=== PATIENT | female | born 1960 | race Caucasian/White ===

== ENCOUNTER 2019-01-26 00:44 | Inpatient (IN) | payer OTHER ==
[~2019-01-26] VITALS: Ht 165.1 cm; Wt 75.8 kg
[~2019-01-26 00:44] MED LIST: HYDROCODONE-AP1 EA10 PO
[2019-01-26 02:35] VITALS: BP 142/77
[2019-01-26] MEDS ORDERED: ABILIFY10 MG PO (02:44)
[2019-01-26] MEDS ORDERED: NITROFURANTOIN100 MG PO (02:44)
[2019-01-26] MEDS ORDERED: BENZTROPINE ME0.5 MG PO (02:45)
[2019-01-26] MEDS ORDERED: TRAZODONE HCL50 MG PO (02:45)
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
[2019-01-26 07:30] VITALS: BP 95/59
--- NOTE | 2019-01-26 09:22 | NUR ---
NEW ORDER FOR ACETAMINOPHEN 650 MG PO PRN FOR ELY. ADMINISTERED FIRST DOSE AT 09:15, C/O ELY RATED "9." STATED THAT SHE TAKES ADVIL OR ASPIRIN AT HOME, ALSO HAS FREQUENT HEADACHES. DENIES MIGRAINES. CONTINUE TO MONITOR.
--- NOTE | 2019-01-26 09:58 | NUR ---
ASSUMED PATIENT CARE AT 0700. PATIENT UP PER SELF FOR BREAKFAST. C/O HEADACHE, NEW ORDER FOR TYLENOL 650 MG. PATIIENT REFUSED A.M. GROUP R/T ELY. TYLENOL GIVEN FOR ELY--SEE EMAR FOR TIME. FLAT AFFECT, DENIES S/I, NO HALLUCINATIONS OIR PARANOIA VERBALIZED. CONTINUE TO MNONITOR.
[2019-01-26 14:15] VITALS: BP 95/59
[2019-01-26 20:15] VITALS: BP 95/59
[2019-01-27 00:19] VITALS: BP 95/59
--- NOTE | 2019-01-27 04:06 | NUR ---
PT IN BED DOZING AT [facility] OF SHIFT. ENCOURAGED TO COME OUT FOR EVENING SNACK. HAD JELLO, AND RETURNED TO ROOM. ALLOWED STAFF TO PERFORM ASSESSMENT AND VS. TOOK HS MEDS PRESCRIBED. DEPRESSED MOOD, BUT CORDIAL AND COOPERATIVE. SLEPT WELL THROUGH THE NIGHT.
[2019-01-27 07:00] VITALS: BP 118/67
--- NOTE | 2019-01-27 10:40 | NUR ---
ASSUMED PT CARE @ 0700. PT WAS RESTING IN BED AT THAT TIME. ATE BREAKFAST IN DAYROOM. C/O HEADACHE AND RECEIVED PRN TYLENOL - LYING DOWN IN ROOM AT PRESENT RESTING W/O FURTHER COMPLAINTS VOICED. DID NOT ATTEND AM GROUP D/T HEADACHE. DENIED ANY SI/HI AND NO HALLUCINATIONS VOICED. PT ORIENTED TO PERSON, PLACE, TIME. AFFECT FLAT. MINIMAL SPONTANEOUS INTERACTION. CONTINUE TO MONITOR.
--- NOTE | 2019-01-27 17:55 | NUR ---
PT SPENT MAJORITY OF SHIFT WITHDRAWN FROM PEERS AND IN HER ROOM. ATE MEALS IN DAYROOM. MOTHER VISITED IN AFTERNOON. NO ACUTE DISTRESS NOTED AND NO FURTHER COMPLAINTS VOICED. NO AGITATION NOTED. CONTINUE TO MONITOR.
[2019-01-27 20:00] VITALS: BP 131/69
[2019-01-28 00:30] VITALS: BP 131/69
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
--- NOTE | 2019-01-28 04:56 | NUR ---
SLEEPING WELL, TURNS IN SLEEP BY SELF. WILL CONTINUE TO MONITOR Q 12 MIN.
--- NOTE | 2019-01-28 05:56 | NUR ---
SLEPT TOTAL OF 8.6 HOURS.
[2019-01-28 07:54] VITALS: BP 111/65
[2019-01-28 11:52] VITALS: BP 111/65
--- NOTE | 2019-01-28 12:06 | NUR ---
ASSUMED CARE AT 0700 THIS MORNING. PT. IN HER ROOM, THEN CAME OUT FOR BREAKFAST. SHE STATED SHE WAS GOING TO MORNING GROUP. SHE WASKED OUT TO THE GROUP AND RETURNED IMMEDIATELY TO HER ROOM. LABS WERE ORDERED, BUT PT. REFUSED THEM. STAFF ASKED HER FOR A STOOL SAMPLE FOR AN OCCULT STOOL, BUT SHE STATED "I DON'T DO THAT STUFF". SHE WAS NOTED TO BE PACING AND TALKING TO HERSELF. WHEN ASKED IF I COULD HELP HER SHE REPLIED, "I'M FINE".
[2019-01-28 20:10] VITALS: BP 142/81
[2019-01-28 20:35] LABS: HEMATOCRIT 21.9 % (37.0-47.0); HEMOGLOBIN 6.9 gm/dL (12.0-15.0); MCH 20.6 pg (26.0-34.0); MCHC 31.6 g/dL (28.0-37.0); MCV 65.3 fL (80.0-100.0); PLATELET COUNT 484 thou/uL (150-400); RBC 3.36 mil/uL (4.20-5.00); RDW 17.5 % (10.5-14.5)
[2019-01-28 21:20] LABS: ABSOLUTE NEUTROPHILS 8.7 thou/uL (1.4-8.2); ANISOCYTOSIS 2+; HYPOCHROMASIA 1+
[2019-01-28 21:21] LABS: POLYCHROMASIA OCCASIONAL
[2019-01-28 23:15] VITALS: BP 142/81
--- NOTE | 2019-01-29 01:19 | NUR ---
ASSUMED CARE @ 1900, IN ROOM AND OCASSIONALY COMES OUT OF ROOM SUCH AT SNACK TIME. SPEACH AND MOVEMENTS ARE HYPER PACED. WHEN ASKED TO ALLOW LAB TO DRAW A BLOOD SAMPLE, SHE WANTED TO REFUSE, BUT ALLOWED IT WHEN EXPLAINED THAT IT WAS IMPORTANT FOR THE DOCTOR TO BE ABLE TO HELP IMPROVE HER HEALTH. PT FOUND IT DIFFICULT TO SIT OF EVEN STAY IN ONE LOCATION LONG ENOUGH FOR ASSESSMENT. A&O X3. HAS POOR INSIGHT INTO PSYCHOLOGICAL AND MENTAL HEALTH ISSUES. TOOK HS MEDS WITHOUT DIFFUCULTY, WHOLE WITH WATER.
--- NOTE | 2019-01-29 01:25 | NUR ---
PRN TRAZADONE 50 MG GIVEN AT HS FOR SLEEP AND TYLENOL 650 GIVEN FOR HEADACHE PAIN OF 6/10. PT SLEPT AND THEN WAS AWAKE @ 01:30. AMBULATING IN HALLS AND DAY ROOM. WILL CONTINUE TO MONITOR.
--- NOTE | 2019-01-29 06:05 | NUR ---
SLEPT 4 HOURS OVERNIGHT.
[2019-01-29 06:06] LABS: HEMOGLOBIN 6.9 gm/dL (12.0-15.0); RDW 17.5 % (10.5-14.5)
[2019-01-29 06:07] LABS: HEMATOCRIT 21.9 % (37.0-47.0); MCH 20.7 pg (26.0-34.0); MCHC 31.7 g/dL (28.0-37.0); MCV 65.2 fL (80.0-100.0); RBC 3.35 mil/uL (4.20-5.00); WBC 7.2 thou/uL (4.0-11.0)
[2019-01-29 06:09] LABS: CREATININE 0.7 mg/dL (0.6-1.0); POTASSIUM 4.1 mmol/L (3.5-5.1)
[2019-01-29 09:03] VITALS: BP 142/81
[2019-01-29 09:13] VITALS: BP 142/81
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
[2019-01-29 11:49] LABS: % SATURATION 2 % (20-39); IRON 8 ug/dL (50-170); TIBC 421 ug/dL (250-450)
[2019-01-29 12:50] LABS: FOLIC ACID 29.3 ng/mL (8.6-58.9)
[2019-01-29 22:53] VITALS: BP 141/96
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
--- NOTE | 2019-01-30 06:13 | NUR ---
PATIENT SLEPT 9.0 HOURS LAST NIGHT.
[2019-01-30 06:15] LABS: HEMATOCRIT 23.4 % (37.0-47.0); HEMOGLOBIN 7.2 gm/dL (12.0-15.0); MCH 20.3 pg (26.0-34.0); MCHC 30.8 g/dL (28.0-37.0); MCV 65.9 fL (80.0-100.0); RBC 3.56 mil/uL (4.20-5.00); RDW 17.4 % (10.5-14.5); WBC 7.6 thou/uL (4.0-11.0)
[2019-01-30 06:24] LABS: CALCIUM 8.7 mg/dL (8.5-10.1); CREATININE 0.6 mg/dL (0.6-1.0)
[2019-01-30 08:00] VITALS: BP 107/72
--- NOTE | 2019-01-30 12:08 | NUR ---
JAMILAH sent a referral to [facility] for pt to be enrolled into Medicaid. JAMILAH will foloow-up with Fritz.
--- NOTE | 2019-01-30 14:45 | NUR ---
ASSUMED PT CARE . REPORT RECEIVED FROM NURSE. PT IS AOX3 FORGETFUL. ON RA. VSS. PT ATE FULL MEALS. PT IS NOT VERY INTERACTIVE WITH STAFF. PT STAYS IN HER ROOM MOST OF THE TIME AFTER MEALS. IRON IV GIVEN ORDERED. IV LINE REMOVED FROM PT AFTER IRON INFUSION WAS OVER. IV SITE COVERED WITH ABD AND TAPE. IM VITAMIN B12 ADMINISTERED ORDERED. PT TOLORATED WELL. WILL CONTINUE TO MONITOR PT.
--- NOTE | 2019-01-30 16:02 | NUR ---
SW completed the SLUMS, and pt scored a 18/30.
[2019-01-30 19:30] VITALS: BP 104/63
[2019-01-30 23:28] VITALS: BP 104/63
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
--- NOTE | 2019-01-31 14:18 | NUR ---
PATIENT HAS BEEN UP AND OUT ON THE UNIT MOST OF THE SHIFT, TOOK ALL MEDICATION WHOLE WITHOUT DIFFICULTY. PATIENT IS EATING MEALS, AND DRINKING FLUID WELL. PATIENT DENIES SUICIDAL, AND HOMOCIDAL IDEATION. PATIENT'S THOUGHT APPEAR TO BE DISORGANIZED, SHE IS JUMPING FROM ONE SUBJECT TO THE OTHER, MAKING NON-SENSICAL STATEMENT. SHE STATES HER GOAL TODAY IS TO GET THROUGH TODAY, THEN CONTINUED SAYING "I HAVE THINGS TO DO, CAN GET THINGS DONE, GET THIS LASER OUT OF MY TEETH, I WANT MY NEIGHBORS LEAVE MY HOME, I WANT TO GET SOMETHING STARTED [facility]". ANTIBIOTIC FOR UTI COMPLETED. PATIENT DID C/O MOUTH PAIN OF 9/10, PRN TYLENOL GIVEN WITH POSITIVE EFFECT. PATIENT IS PARTICIPATING IN ALL GROUP THERAPY. PATIENT WAS UNABLE TO RESPOND APPROPRIATELY TO FURTHER ASSESSMENT QUESTIONS WHEN ASKE ABOUT DEPRESSION AND ANXIETY DUE TO COGNITIVE IMPAIREMENT, WILL MONITOR FOR SAFETY.
[2019-01-31 19:56] VITALS: BP 137/74
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
[2019-02-01 05:41] LABS: HEMATOCRIT 22.6 % (37.0-47.0); MCH 20.6 pg (26.0-34.0); MCHC 31.2 g/dL (28.0-37.0); RBC 3.43 mil/uL (4.20-5.00); RDW 17.6 % (10.5-14.5); WBC 8.1 thou/uL (4.0-11.0)
[2019-02-01 07:00] VITALS: BP 127/76
--- NOTE | 2019-02-01 11:08 | NUR ---
DANYELLE called for pt ridcarson Rose her taxi , and he would be picking up this pt at 1pm. Danyelle confirmed this with nursing and pt.
[2019-02-01] MEDS ORDERED: ACETAMINOPHEN325 M1 PO (11:45)
[2019-02-01] MEDS ORDERED: TRAZODONE HCL50 MG PO (11:45)
[2019-02-01] MEDS ORDERED: ABILIFY 5 MG TAB5 MG PO (11:45)
[2019-02-01] MEDS ORDERED: BENZTROPINE ME0.5 MG PO (11:46)
[2019-02-01 12:59] VITALS: BP 127/76
[2019-02-01 13:09] VITALS: BP 127/76
[2019-02-01 13:12] VITALS: BP 127/76
--- NOTE | 2019-02-01 16:07 | NUR ---
ASSUMED PT CARE AT 0700. PT WITH FLAT AFFECT, CALM. DC ORDERS RECEIVED, DISCHARGE INSTRUCTION AND SCRIPTS REVIEWED. CAB PICKED PT UP ESCORTED OFF UNIT. JOE KLEIN POC.
== END 2019-02-01 16:00 | disposition home or self-care (01) | DRG 885 ==
LOC: SBH 02:13
PROVIDERS: Hospitalist; Internal Medicine; ADMIT Psychiatry & Neurology Psychiatry
DX: F20.0 Paranoid schizophrenia (principal); R45.851 Suicidal ideations; N39.0 Urinary tract infection, site not specified; K21.9 Gastro-esophageal reflux disease without esophagitis; F39 Unspecified mood [affective] disorder; F29 Unspecified psychosis not due to a substance or known physiological condition; D50.9 Iron deficiency anemia, unspecified; Z88.8 Allergy status to other drugs, medicaments and biological substances; Z87.81 Personal history of (healed) traumatic fracture; Z79.899 Other long term (current) drug therapy
CPT/HCPCS: 10880